=== PATIENT | female | born 1990 | race Caucasian/White ===

== ENCOUNTER 2017-12-27 08:40 | Inpatient (IN) | payer OTHER ==
[~2017-12-27] VITALS: Ht 170.2 cm; Wt 107.5 kg
[~2017-12-27 08:40] MED LIST: PRENATABS RX T1 EACH PO
[2017-12-27 09:39] VITALS: BP 127/59
[2017-12-27 09:43] LABS: ABSOLUTE BASOPHIL COUNT 0 /CUMM (0.0-0.2); ABSOLUTE EOSINOPHIL COUNT 0.1 /CUMM (0.0-0.7); ABSOLUTE GRANULOCYTE CT 6.1 /CUMM (1.4-6.5); ABSOLUTE LYMPH COUNT 1.6 /CUMM (1.2-3.4); ABSOLUTE MONOCYTE COUNT 0.7 /CUMM (0.10-0.60); BASOPHIL % 0.5 % (0.0-2.0); EOSINOPHIL % 0.7 % (0-5); GRANULOCYTE % 71.8 % (42.2-75.2); HEMATOCRIT 41.2 % (37-47); MEAN CORPUSCULAR HGB CONC 34.4 G/DL (33.0-37.0); MEAN CORPUSCULAR VOLUME 87.3 FL (81.0-99.0); MEAN PLATELET VOLUME 7.7 FL (7.4-10.4); PLATELET COUNT 233 /CUMM (130-400); RBC DISTRIBUTION WIDTH 13.7 % (11.5-14.5); RED BLOOD CELL CT 4.72 /CUMM (4.20-5.40); WHITE BLOOD CELL COUNT 8.5 /CUMM (4.8-10.8)
--- NOTE | 2017-12-27 10:22 | History & Physical ---
General Information and HPI MD Statement: I have seen and personally examined BARBARA ALVAREZ and documented this H&P. The patient is a 27 year old female at 39 weeks and 3 days gestation who presented with a chief complaint of induction of labor. Source of Information: patient, old records Exam Limitations: no limitations History of Present Illness: Patient is a 27 year old female at 39w3d for elective induction of labor as favorable cervix. Good movement. 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 Home Who Do You Live With? spouse Primary Language: [place] Smoking Status: Never Smoked ETOH Use: denies use Illicit Drug Use: denies illicit drug use Living Will? 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 EENTM: Denies: no symptoms. Cardiovascular: Denies: no symptoms. Respiratory: Denies: no symptoms. GI: Denies: no symptoms. Genitourinary: Denies: no symptoms. Musculoskeletal: Denies: no symptoms. Skin: Denies: no symptoms. Neurological/Psychological: Denies: no symptoms. Hematologic/Endocrine: Denies: no symptoms. Immunologic/Allergic: Denies: no symptoms. All Other Systems: Reviewed and Negative Date of LMP: 03/26/17 Post Menopausal: No Mammogram Testing Status: Test never done Date of Last Pap Smear: 07/04/17 Colonoscopy Testing Status: Test never done Comments Pap normal 2018 Exam & Diagnostic Data Last 24 Hrs of Vital Signs/I&O Vital Signs Date Time Temp Pulse Resp B/P B/P Pulse O2 O2 Flow FiO2 Mean Ox Delivery Rate 12/27 0939 127/59 Intake & Output 12/27 1600 12/27 0800 12/27 0000 Intake Total Output Total Balance Patient 107.501 kg Weight Obstetric Exam Wgt Gained During : 42 lbs Pelvimetry: Gynecoid Dilation (cm): 4 Effacement (%): 80 Station: 0 Membranes: intact Fluid: Intact Fundal Height (cm): 39 Multiple Gestation? No Contractions: Irregular q 5-10 Infant #1 - FHR Baseline: 140 Category: 1 Estimated Weight: 3600 grams Limited US showing maximum vertical pocket of amniotic fluid at 3.5 cm. Rotation of head ROT Presentation: Cephalic Patient for Induction? Yes Rocha Score Rocha Score Response Value Cervix Position: mid-position 1 Cervix Consistency: soft 2 Cervix Effacement: >80% 3 Cervix Dilation: 3-4 cm 2 Cervix Station: -1 2 Total 10 Physical Exam General Appearance Alert, Oriented X3, Cooperative, No Acute Distress Skin No Rashes HEENT Atraumatic, PERRLA Neck Supple Cardiovascular Regular Rate, Normal S1, Normal S2 Lungs Clear to Auscultation, Normal Air Movement Abdomen Normal Bowel Sounds, Soft Neurological Normal Gait, Normal Speech, Strength at 5/5 X4 Ext, Normal Tone, Sensation Intact, Cranial Nerves 3-12 NL, Reflexes 2+ Extremities No Edema Vascular Normal Pulses, Pulses Symmetrical Breasts Breast appear nl Reproductive (FEMALE) Normal female genitalia Pelvic (FEMALE) Appearance Normal Labs Blood Type & Rh: O positive Antibody Screen: negative Hct/Hgb & Platelets #1: 40.1 Hct/Hgb & Platelets #2: 42/255 Rubella: immune VDRL #1: negative VDRL #2: negative HbsAg: negative HIV #1: negative HIV #2 negative 1 Hr P 3 Hr PG: na Group B Strep: negative Initial Ultrasound: wnl Anatomy Ultrasound: Level 2 wnl except for adrenal cyst. On follow up it was smaller per MFM at [facility]. Ultrasound for EFW: 3145 grams (71%) on 12/07/17 Genetic Testing: NIPT negative and AFP wnl Last 24 Hrs of Labs/Vinay: Laboratory Tests 12/27/17 0909: CBC w Diff NO MAN DIFF REQ, RBC 4.72, MCV 87.3, MCH 30.0, MCHC 34.4, RDW 13.7, MPV 7.7, Gran % 71.8, Lymphocytes % 18.5 L, Monocytes % 8.5, Eosinophils % 0.7, Basophils % 0.5, Absolute Granulocytes 6.1, Absolute Lymphocytes 1.6, Absolute Monocytes 0.7 H, Absolute Eosinophils 0.1, Absolute Basophils 0, Urine Color YEL, Urine Clarity CLEAR, Urine pH 7.0, Ur Specific [place] 1.010, Urine Protein NEG, Urine Ketones NEG, Urine Nitrite NEG, Urine Bilirubin NEG, Urine Urobilinogen 0.2, Ur Leukocyte Esterase SMALL H, Ur Microscopic SEDIMENT EXAMINED, Urine RBC 1-3, Urine WBC 10-15 H, Ur Epithelial Cells MOD H, Urine Bacteria FEW H, Urine Hemoglobin TRACE-INTACT, Urine Glucose NEG Assessment/Plan Assessment/Plan: 27 year old para 0 with complicated by obesity and fetus with adrenal cyst. Patient is for elective induction of labor however patient with favorable cervix with rocha of 10. Patient expressed interest in having me as her provider perform the delivery instead of a covering provider. We discussed the ARRIVE date 2018 and [facility] deems it reasonable to offer low risk woman induction of labor at the 39th week. This trial showed decrease in the risk of csectoin, decrease in respiratory morbidity to the and decrease in preeclampsia. As her rcoha is 10 her risk for csection is less than 10. Of note US showing normal amniotic fluid level and a fetus that is in OT rotation. Obviously risks are inherent with induction (pyrexia, abnormal heart rate and tachysystole) but patient and partner understand those risks and wish to proceed with induction. Admit to CBC Labs sent per protocol Oxytocin protocol #2 chosen. Titrate dose up to achieve cervical change. Nitrous oxide consent obtained for labor analgesia VTE risks reviewed Epidural as needed Discussed adrenal cyst with peds however more likely to be discussed at follow up Pediatric visit. Consents obtained for care and induction. Anticipate vaginal . As Ranked By This Provider Problem List: 1. Obesity affecting in third trimester, antepartum 2. Core Measures Venous Thromboembolism VTE Risk Factors / No Mechanical VTE Prophylaxis d/t N/A MechProphylax Ordered No VTE Pharm Prophylaxis d/t NA PharmProphylax ordered
--- NOTE | 2017-12-27 15:24 | PN- OBGYN ---
Surgical Brief Attending Note Brief Attending Note: Feeling nauseated Using the Nitrous with relief but she is requesting epidural Afebrile and vitals stable Catagory 1 tracing Oxytocin at 10 cc per hour /0 station For epidural. Anesthesiology contacted Good cervical change. Continue on oxytocin. Anticipate vaginal .
--- NOTE | 2017-12-27 16:58 | PN- OBGYN ---
Surgical Brief Attending Note Brief Attending Note: C/o pressure Anterior lip/0 station AROM clear fluid Catagory 1 tracing Oxytocin on 5 cc per hour Anticipate vaginal .
--- NOTE | 2017-12-27 17:47 | Labor & Delivery Summary ---
Delivery Summary Vaginal Delivery: Vaginal: spontaneous Episiotomy/Lacerations: Episiotomy/Lacerations: 2nd degree Type: 2nd degree fourchette Repair: 3-0 vicryl Anesthesia: Epidural Placenta: Placenta: spontanteous, normal, 3 vessel, nuchal cord (x_) (Nuchal x 1 not reduced) Anesthesia: Epidural Apgars - 1 Min: 9 Apgars - 5 Min: 9 Additional Comments: Delivered through intact perineum OA at delivery Nuchal not reduced and clamped and cut Given to Mother on skin Placenta passed spontaneously and 3 vessel and intact Uterus firm with oxytocin Laceration repaired and rectum intact Good hemostasis on the laceration repair Vagina inspected without additional tears EBL 400 cc female liveborn.
[2017-12-28 09:55] LABS: ABSOLUTE BASOPHIL COUNT 0 /CUMM (0.0-0.2); ABSOLUTE EOSINOPHIL COUNT 0 /CUMM (0.0-0.7); ABSOLUTE GRANULOCYTE CT 8.5 /CUMM (1.4-6.5); ABSOLUTE LYMPH COUNT 1.7 /CUMM (1.2-3.4); ABSOLUTE MONOCYTE COUNT 0.8 /CUMM (0.10-0.60); BASOPHIL % 0.4 % (0.0-2.0); EOSINOPHIL % 0.3 % (0-5); GRANULOCYTE % 76.8 % (42.2-75.2); HEMATOCRIT 39.5 % (37-47); MEAN CORPUSCULAR HGB 30.1 PG (27.0-31.0); MEAN CORPUSCULAR HGB CONC 33.6 G/DL (33.0-37.0); MEAN CORPUSCULAR VOLUME 89.6 FL (81.0-99.0); MEAN PLATELET VOLUME 7.6 FL (7.4-10.4); PLATELET COUNT 211 /CUMM (130-400); RBC DISTRIBUTION WIDTH 13.9 % (11.5-14.5); RED BLOOD CELL CT 4.41 /CUMM (4.20-5.40)
--- NOTE | 2017-12-28 10:42 | PN- OBGYN ---
Surgical Brief Attending Note Brief Attending Note: Seen and evaluated Doing well Mild discomfort in perineum Breast feeding without issues No nausea Vitals per paper record Hct 39 and urine culture negative POD#1 s/p uncomplicated vaginal Tdap received at 28 weeks Flu shot to get within the next month DC home planned for tomorrow and CBC follow up in 4-5 days and 4 week follow up to provider. Pain management strategies reviewed.
--- NOTE | 2017-12-29 09:31 | PN- OBGYN ---
Surgical Brief Attending Note Brief Attending Note: Seen and evaluated Doing well and bonding well with Breast feeding Mild back discomfort Eating without nausea nor vomiting Pain medication working well No bowel movement yet Afebrile and vitals stable For discharge today Tdap given antepartum Flu shot for follow up visit CBC follow up this week and 4 weeks to me at office Will review IUD at that time. Breast feeding counseling blues and depression signs reviewed VTE risks reviewed and ambulation benefits reviewed
[2017-12-29] MEDS ORDERED: IBUPROFEN800 M1 PO (10:36)
== END 2017-12-29 11:34 | DRG 775 ==
LOC: GNO 08:40
PROVIDERS: Obstetrics & Gynecology
PROC: 10E0XZZ Delivery of Products of Conception, External Approach (ICD-10-PCS; principal; 2017-12-27)
PROC: 0KQM0ZZ Repair Perineum Muscle, Open Approach (ICD-10-PCS; principal; 2017-12-27)
PROC: 3E033VJ Introduction of Other Hormone into Peripheral Vein, Percutaneous Approach (ICD-10-PCS; 2017-12-27)
PROC: 10907ZC Drainage of Amniotic Fluid, Therapeutic from Products of Conception, Via Natural or Artificial Opening (ICD-10-PCS; 2017-12-27)
DX: O70.1 Second degree perineal laceration during delivery (principal); O69.81X0 Labor and delivery complicated by cord around neck, without compression, not applicable or unspecified; O99.214 Obesity complicating childbirth; E66.9 Obesity, unspecified; Z3A.39 39 weeks gestation of pregnancy; Z37.0 Single live birth
CPT/HCPCS: GNOS; 81001; 87086; J2405; J7120